=== PATIENT | male | born 1965 | race Caucasian/White ===

== ENCOUNTER 2024-03-09 13:31 | Emergency (ER) | payer BC, SELFPAY ==
[2024-03-09 13:35] VITALS: BP 181/105; BMI 32.1
[2024-03-09 13:51] LABS: % Basophils 0.6 % (0-2); % Immature Granulocytes 0.3 % (0-0.5); % Monocytes 6.5 % (1.7-9.3); % Neutrophils 50.6 % (42.2-75.2); Absolute Eosinophils 0.1 10^3/uL (0-0.7); Absolute Lymphocytes 2.8 10^3/uL (1.2-3.4); Absolute Monocytes 0.5 10^3/uL (0.1-0.6); Absolute Neutrophils 3.5 10^3/uL (1.4-6.5); Hematocrit 42.1 % (39.0-52.0); Mean Corp Hgb Conc. 35.6 g/dL (33.0-37.0); Mean Corpuscular Hgb 30.3 pg (27.0-31.0); Mean Corpuscular Volume 85.1 fL (80.0-94.0); Mean Platelet Volume 9.3 fL (7.4-10.4); Nucleated Red Blood Cells % 0 % (-); Platelet Count 258 10^3/uL (130-400); Red Blood Cell Count 4.95 10^6/uL (4.70-6.10); Red Cell Dist. Width 12.6 % (11.5-14.5); White Blood Cell Count 6.9 10^3/uL (4.8-10.8)
--- NOTE | 2024-03-09 13:56 | ED.GENMED ---
History of Present Illness
<Anaya Cavazos PA-C - Last Filed: 03/09/24 15:46>
General
Chief Complaint: Abdominal Pain
Source: patient
Exam Limitations: none
Time Seen by Provider: 03/09/24 13:50
Nursing documentation reviewed up to this point in time: agreed with
Travel History
Have you had any contact with someone who has COVID-19?: No
Do you have any symptoms of coronavirus? Fever > 100 degrees, chills, cough, shortness of breath, sore throat, loss of taste or smell, muscle aches, or headache?: No
History of Present Illness
History of Present Illness:
58 y/o M with h/o NIDDM, hld
here with sudden onset of left lower abd pain and the urge to urinate but cannot urinate normally
he had small amount of urine output about1 hour ago
was at work when this started
was severly uncomfortable and unable to answer history questions
received fentanyl and zofran en route
no h/o kidney stone, urinary retention, divertic, aortic disease
Past History
<Anaya Cavazos PA-C - Last Filed: 03/09/24 15:46>
Past History
ED Past Medical History: Hypercholesterolemia and NIDDM
Social History
Tobacco: Smoker
Drug: None
Review of Systems
<Anaya Cavazos PA-C - Last Filed: 03/09/24 15:46>
Review of Systems
Allergies reviewed?: Yes
All Other Systems: Not applicable
Phy Exam
<Anaya Cavazos PA-C - Last Filed: 03/09/24 15:46>
Physical Exam
Physical Exam:
GENERAL: Alert, uncomfortable, writhing, holding LLQ
Neck: supple
CARDIAC: Regular rate and rhythm .
LUNGS: Clear breath sounds bilaterally, no acute respiratory distress, no wheezes/rales/rhonchi
ABDOMEN: Soft, normal bowel sounds, nondistended, no specific tenderness, no guarding, no rebound, neg starks's
writing around
NEUROLOGICAL: Alert and oriented, no focal neuro deficits, strength intact, moving all extremities;
SKIN: Warm and dry, skin intact.
PSYCH: Normal and appropriate interaction.
Course
<Anaya Cavazos PA-C - Last Filed: 03/09/24 15:46>
Orders/Labs/Results
Orders:
Orders
03/09/24 13:43
Complete Blood Count/With Diff Urgent
Comprehensive Metabolic Panel Urgent
03/09/24 13:50
HYDROmorphone [Dilaudid] 1 mg IV NOW STA
03/09/24 14:09
0.9% Sodium Chloride 1000 ml [Nss] 1,000 ml IV BOLUS
03/09/24 14:15
CT Abd/Pel (IV only)-DH only Urgent
Comment:
Reason For Exam: severe LLQ pain
HYDROmorphone [Dilaudid] 1 mg IV NOW STA
03/09/24 14:45
Ketorolac [Toradol] 30 mg IV NOW STA
03/09/24 15:21
Tamsulosin [Flomax] 0.4 mg PO NOW STA
03/09/24 16:05
Urinalysis Reflex To Culture Urgent
Date Specimen was Collected: 03/09/24
Time Specimen was Collected: 16:02
Urine Microscopic Reflex Cult Urgent
03/09/24 17:10
Ketorolac [Toradol] 30 mg IV NOW STA
Abnormal Lab Results
03/09/24 03/09/24
13:43 16:05
Creatinine 0.6 L mg/dL
(0.7-1.3)
Glucose 214 H mg/dl
(70-99)
Urine Ketones Trace A
(Negative)
Ur Occult Blood Reflex 4+ A
(Negative)
Urine Bilirubin 1+ A
(Negative)
Urine RBC 50-60 A /HPF
(0-2)
Urine Glucose Trace A
(Negative)
03/09/24 13:43
03/09/24 13:43
Vital Signs
Initial and Last Documented VS:
Initial Vital Signs
Temp Pulse Resp BP Pulse Ox
97.6 F 68 16 181/105 98
03/09/24 13:35 03/09/24 13:35 03/09/24 13:35 03/09/24 13:35 03/09/24 13:35
Last Documented Vital Signs
Temp Pulse Resp BP Pulse Ox
97.6 F 74 16 138/92 97
03/09/24 13:35 03/09/24 15:40 03/09/24 15:40 03/09/24 15:40 03/09/24 15:40
<Azam Guerrero Jr., PA-C - Last Filed: 03/09/24 17:13>
Orders/Labs/Results
Orders:
Orders
03/09/24 13:43
Complete Blood Count/With Diff Urgent
Comprehensive Metabolic Panel Urgent
03/09/24 13:50
HYDROmorphone [Dilaudid] 1 mg IV NOW STA
03/09/24 14:09
0.9% Sodium Chloride 1000 ml [Nss] 1,000 ml IV BOLUS
03/09/24 14:15
CT Abd/Pel (IV only)-DH only Urgent
Comment:
Reason For Exam: severe LLQ pain
HYDROmorphone [Dilaudid] 1 mg IV NOW STA
03/09/24 14:45
Ketorolac [Toradol] 30 mg IV NOW STA
03/09/24 15:21
Tamsulosin [Flomax] 0.4 mg PO NOW STA
03/09/24 16:05
Urinalysis Reflex To Culture Urgent
Date Specimen was Collected: 03/09/24
Time Specimen was Collected: 16:02
Urine Microscopic Reflex Cult Urgent
03/09/24 17:10
Ketorolac [Toradol] 30 mg IV NOW STA
Abnormal Lab Results
03/09/24 03/09/24
13:43 16:05
Creatinine 0.6 L mg/dL
(0.7-1.3)
Glucose 214 H mg/dl
(70-99)
Urine Ketones Trace A
(Negative)
Ur Occult Blood Reflex 4+ A
(Negative)
Urine Bilirubin 1+ A
(Negative)
Urine RBC 50-60 A /HPF
(0-2)
Urine Glucose Trace A
(Negative)
03/09/24 13:43
03/09/24 13:43
Vital Signs
Initial and Last Documented VS:
Initial Vital Signs
Temp Pulse Resp BP Pulse Ox
97.6 F 68 16 181/105 98
03/09/24 13:35 03/09/24 13:35 03/09/24 13:35 03/09/24 13:35 03/09/24 13:35
Last Documented Vital Signs
Temp Pulse Resp BP Pulse Ox
97.6 F 74 16 138/92 97
03/09/24 13:35 03/09/24 15:40 03/09/24 15:40 03/09/24 15:40 03/09/24 15:40
<Anaya Cavazos PA-C - Last Filed: 03/09/24 15:46>
MDM/Problems Addressed
Differential Diagnosis Includes:
kidney stone, diverticulitis, aortic dissection
MDM/Problems Addressed:
58 y/o M with h/o HLD
here wth severe LLQ pain
nothing makes better or worse
feels urge to urinate
urinated a while ago but now feels like he cant
no nausea, vomiting, cp, sob, weakness in his legs
writhing in pain
moving all extremities
nontender abdomen
wbc normal
cr normal
ua pending
ct shows small 2mm L uvj stone
pain was not relieved with dilaudid x 2
toraodl helped pain
flomax
ua and d/c
<Azam Guerrero Jr., PA-C - Last Filed: 03/09/24 17:13>
MDM/Problems Addressed
MDM/Problems Addressed:
58 y/o M with h/o HLD
here wth severe LLQ pain
nothing makes better or worse
feels urge to urinate
urinated a while ago but now feels like he cant
no nausea, vomiting, cp, sob, weakness in his legs
writhing in pain
moving all extremities
nontender abdomen
wbc normal
cr normal
ua pending
ct shows small 2mm L uvj stone
pain was not relieved with dilaudid x 2
toraodl helped pain
flomax
ua and d/c
Urinalysis without signs of infection. Patient reassessed in no obvious discomfort stable for discharge will follow-up with urology return precautions given.
<Azam Guerrero Jr., PA-C - Last Filed: 03/09/24 17:13>
*Critical Care Note
Total Time (30-74mins, 75-104mins- exclusive of procedures): Not Applicable
ED Attending Note
<Anaya Cavazos PA-C - Last Filed: 03/09/24 15:46>
-
Portions of this chart may have been created with voice recognition software.� Occasional wrong word or��sound alike� substitutions may have occurred due to the inherent limitations of voice recognition software.
Discharge Plan
Departure
Patient Disposition: Home (Routine Discharge)
Date of Disposition: 03/09/24
Time of Disposition: 17:12
Patient with high blood pressure during this ER visit?: No
Condition: Good
Covid-19: Not Applicable
Discharge Problem:
Ureterolithiasis
Instructions: Kidney Stones (DC)
Prescriptions:
New
oxycodone 5 mg tablet
5 mg PO Q8H PRN (Reason: Pain) Qty: 12 0RF
ibuprofen 600 mg tablet
600 mg PO Q8H PRN (Reason: Pain) Qty: 20 0RF
tamsulosin [Flomax] 0.4 mg capsule
0.4 mg PO DAILY Qty: 10 0RF
Referrals:
Gaston [place] MD [Active] - Follow up in 1 week (UROLOGY)
Brina Thurman MD [Family Provider] - Follow up in 2-3 days
Stand Alone Forms: Return to Work
Activity Restrictions/Additional Instructions:
You have a 2 mm kidney stone in the left lower ureter almost near your bladder. Drink plenty of fluids. Take Flomax once a day until you pass the stone. Each time you urinate please pee through the strainer. Take Tylenol 3 times a day for pain.
Take ibuprofen 3 times a day as well. If the pain is severe you can use oxycodone 5 mg every 8 hours. This may make you constipated, use a stool softener while you are to taking this. Call the urologist to make a follow-up appointment. Return
for worsening pain, fever or chills, inability to urinate, vomiting or any concern
Interventions
Interventions:
*Risk Screen - Suicide Last Done: 03/09/24 13:39
*General Assessment Last Done: 03/09/24 13:38
*Neglect/Abuse Screening Last Done: 03/09/24 13:39
*ED COVID-19 Vaccine History Last Done: 03/09/24 13:38
BK-Syvlvh-Bbfoyqwyap Assessment Last Done: 03/09/24 13:42
Discharge Date and Time
Print Language: [place]
[2024-03-09] MEDS: DILAUDID 1 MG IV ×2 (13:58→14:18)
[2024-03-09 14:07] LABS: ALT (SGPT) 31 U/L (0-50); AST (SGOT) 26 U/L (17-59); Albumin 4.5 g/dl (3.5-5.0); Alkaline Phosphatase 67 U/L (38-126); Blood Urea Nitrogen 12 mg/dl (9-20); Calcium 9.6 mg/dl (8.4-10.2); Carbon Dioxide 24 mmol/L (22-30); Chloride 103 mmol/L (98-107); Estimated Creatinine Clearance > 125 ml/min; Glucose 214 mg/dl (70-99); Potassium 4.4 mmol/L (3.5-5.1); Sodium 136 mmol/L (135-145); Total Bilirubin 0.6 mg/dl (0.2-1.3); Total Protein 7.2 g/dl (6.3-8.2); eGFR > 60.00
[2024-03-09] MEDS: NSS 1000 IV (14:18)
[2024-03-09] MEDS: TORADOL 30 MG IV ×2 (14:52→17:17)
[2024-03-09] MEDS: FLOMAX 0.400000000000000022 MG PO (15:25)
[2024-03-09 15:40] VITALS: BP 138/92
[2024-03-09 16:16] LABS: Urine Albumin Trace (Neg - Trace); Urine Bilirubin 1+ (Negative); Urine Character Clear (Clear); Urine Color Yellow; Urine Glucose Trace (Negative); Urine Ketone Trace (Negative); Urine Leukocyte Negative (Negative); Urine Nitrite Negative (Negative); Urine Occult Blood 4+ (Negative); Urine Specific Gravity 1.015 (<1.030); Urine Urobilinogen Negative (Neg - 1+)
[2024-03-09 16:57] LABS: Urine Red Blood Cell 50-60 /HPF (0-2); Urine White Cell 0-2 /HPF (0-5)
== END 2024-03-09 18:09 | disposition home or self-care (01) ==
LOC: EMR 13:31
PROVIDERS: Emergency Medicine; Physician Assistant; EMERGENCY PHYSICIAN Emergency Medicine; FAMILY PHYSICIAN Internal Medicine
DX: N20.1 Calculus of ureter (principal); E11.9 Type 2 diabetes mellitus without complications; E78.00 Pure hypercholesterolemia, unspecified; I25.10 Atherosclerotic heart disease of native coronary artery without angina pectoris
CPT/HCPCS: 99284; 96374; 96375; 96361; 74177; 80053; 81003; 81015; 85025; Q9967